=== PATIENT | male | born 1960 | race Caucasian/White ===

== ENCOUNTER 2024-06-13 11:21 | Inpatient (IN) | payer BC ==
[~2024-06-13] VITALS: Ht 182.9 cm; Wt 111.5 kg
[2024-06-13] VITALS (7 sets, daily range): BP systolic 201; BP diastolic 110; PULSE 86–94; RESP 16–18; TEMP 97.5; O2SAT 92–98
[2024-06-13 12:24] LABS: BASOPHILS # (AUTO) 0.1 X10'3 (0-0.2); BASOPHILS % (AUTO) 0.9 % (0-1); EOSINOPHILS # (AUTO) 0.2 X10'3 (0-0.9); EOSINOPHILS % (AUTO) 2.7 % (0-6); HEMATOCRIT 48.9 % (42.0-52.0); HEMOGLOBIN 16.6 g/dl (14.0-17.9); LYMPHOCYTES # (AUTO) 1.9 X10'3 (1.1-4.8); MEAN CORPUSCULAR HEMOGLOBIN 30.1 PG (27.0-31.0); MEAN CORPUSCULAR HGB CONC 33.9 g/dL (33.0-36.5); MEAN CORPUSCULAR VOLUME 88.6 FL (78-98); MEAN PLATELET VOLUME 7.5 FL (7.4-10.4); MONOCYTES # (AUTO) 0.5 X10'3 (0-0.9); MONOCYTES % (AUTO) 6.3 % (2-12); NEUTROPHILS % (AUTO) 65.1 % (42-75); PLATELET COUNT 286 X10'3 (140-440); RED BLOOD COUNT 5.52 X10'6 (4.70-6.10); RED CELL DISTRIBUTION WIDTH 15.5 % (11.5-14.5); WHITE BLOOD COUNT 7.6 X10'3 (4.5-11.0)
[2024-06-13 12:38] LABS: APTT 29 SECONDS (22-32); PROTHROMBIN TIME 10.2 SECONDS (9.0-12.0)
[2024-06-13 12:43] LABS: ALBUMIN 3.7 G/DL (3.4-5.0); ANION GAP 10 (8-16); BLOOD UREA NITROGEN 13 MG/DL (7-18); BUN/CREATININE RATIO 11.4 (10.0-20.0); CALCIUM 9.3 MG/DL (8.5-10.1); CHLORIDE 98 MMOL/L (99-107); CREATININE 1.14 MG/DL (0.60-1.10); GLUCOSE 111 MG/DL (70-104); SODIUM 136 MMOL/L (135-145); TOTAL CARBON DIOXIDE 28.4 MMOL/L (24-32); eCRCL 73 ML/MIN; eGFR 65 ML/MIN
[2024-06-13] MEDS: metoprolol tartrate 50mg tablet PO ONE (12:48)
[2024-06-13] MEDS: enalaprilat 1.25mg/ml 2ml vial IV ONE (12:48)
[2024-06-13] MEDS ORDERED: iohexol 350MG/ML 100ml bottle IV ONE (13:17)
[2024-06-13] MEDS ORDERED: potassium Cl 40MEQ/1/2NS 520ml 520 ML IV PRN (13:45)
[2024-06-13] MEDS ORDERED: magnesium sulf-water 4G/100mL 100 ML IV PRN (13:45)
[2024-06-13] MEDS ORDERED: acetaminophen 325mg tablet PO PRN ×2 (13:45)
[2024-06-13] MEDS ORDERED: morphine 2 MG/ML inj. syringe IV PRN (13:45)
[2024-06-13] MEDS ORDERED: potassium Cl 20 mEq SR tablet PO PRN ×2 (13:45)
[2024-06-13] MEDS ORDERED: magnesium sulf-water 2g/50mL 50 ML IV PRN (13:45)
[2024-06-13] MEDS ORDERED: magnesium Cl slow-release 64mg tablet PO PRN (13:45)
[2024-06-13] MEDS ORDERED: ondansetron/PF 4mg/2ml inj IV PRN (13:45)
[2024-06-13] MEDS ORDERED: mag hydrox/Alum hydrox/simeth 30ml oral suspension PO PRN (13:45)
[2024-06-13] MEDS ORDERED: magnesium hydroxide 30ml (MOM) UD suspension PO PRN (13:45)
[2024-06-13] MEDS: PERFLUTREN PROTEIN-A MICROSPHR (Optison) 0.22 MG/ML 3ML VIAL IV ONE (13:59)
[2024-06-13 14:03] LABS: BILIRUBIN,URINE NEGATIVE (Neg); CLARITY,URINE CLEAR (Clear); COLOR,URINE YELLOW (Yellow); GLUCOSE, URINE NEGATIVE (Neg); KETONES,URINE NEGATIVE (Neg); LEUKOCYTE ESTERASE ,URINE NEGATIVE (Neg); NITRITES, URINE NEGATIVE (Neg); OCCULT BLOOD,URINE NEGATIVE (Neg); PH,URINE 6.5 (4.8-8.0); PROTEIN,URINE 100 mg/dl (Neg); UROBILINOGEN,URINE 0.2 E.U/dL (0.2-1.0)
[2024-06-13 14:08] LABS: UA COLLECTION TYPE CLN CATCH MIDSTREAM
[2024-06-13 14:09] LABS: BACTERIA,URINE NONE SEEN /HPF (Neg); WBC,URINE NONE SEEN /HPF (0-4)
[2024-06-13 14:10] LABS: SQUAMOUS EPITHELIAL CELL,UR NONE SEEN /LPF (FEW)
[2024-06-13] MEDS ORDERED: albuterol 2.5 MG/3 ML nebule NEB PRN (15:00)
[2024-06-13] MEDS ORDERED: dextrose 50%-water 50ml dispensing syringe IV PRN (15:30)
[2024-06-13] MEDS ORDERED: haloperidol lactate 5mg/ml inj IM PRN (15:30)
[2024-06-13] MEDS: atorvastatin 20mg tablet PO SCH (15:31)
[2024-06-13] MEDS: aspirin 81mg tab.chew PO ONE (15:32)
[2024-06-13] MEDS: methylPREDNISolone sod succ 125mg/2ml vial IV ONE (15:59)
[2024-06-13] MEDS: nicotine 21mg patch - 24 hr TD SCH (15:59)
[2024-06-13] MEDS: CefTRIAXone/D5W-Rocephin 1gm 50 ML IV SCH (15:59)
[2024-06-13 16:27] LABS: HEMOGLOBIN A1C 6.3 % (4.5-6.2)
[2024-06-13] MEDS: ipratropium/albuterol 3ml nebule NEB SCH (16:31)
[2024-06-13] MEDS: azithromycin 250mg tablet PO ONE (17:00)
[2024-06-13] MEDS: clopidogrel 300mg tablet PO ONE (17:00)
[2024-06-13 17:24] LABS: URINE AMPHETAMINE SCREEN NEGATIVE (Neg); URINE BARBITUATE SCREEN NEGATIVE (Neg); URINE BENZODIAZEPINES SCREEN NEGATIVE (Neg); URINE CANNABINOID SCREEN POSITIVE (Neg); URINE COCAINE SCREEN NEGATIVE (Neg); URINE METHADONE SCREEN NEGATIVE (Neg); URINE OPIATE SCREEN NEGATIVE (Neg); URINE PHENCYCLIDINE SCREEN NEGATIVE (Neg)
[2024-06-13] MEDS: docusate sod 100mg capsule PO SCH (19:04)
[2024-06-13] MEDS: K and/or MAG REPLACEMENT MC SCH (19:04)
[2024-06-13] MEDS: thiamine 100mg/ml 2ml inj. IV SCH (20:10)
[2024-06-13] MEDS: Cipro HC otic suspension 10ML bottle EACH EAR SCH (20:10)
[2024-06-13] MEDS: methylPREDNISolone sod succ/PF 40mg inj. IV SCH (20:10)
[2024-06-13] MEDS ORDERED: NO HOME MEDS (20:34)
[2024-06-13] MEDS: LORazepam 1 MG tablet PO PRN (22:01)
[2024-06-14] VITALS (16 sets, daily range): BP systolic 153–194; BP diastolic 87–107; PULSE 88–119; RESP 16–20; TEMP 97.3–98.6; O2SAT 91–95
[2024-06-14] MEDS: haloperidol 5mg tablet PO PRN (00:15)
[2024-06-14 06:13] LABS: BASOPHILS % (AUTO) 0.2 % (0-1); EOSINOPHILS % (AUTO) 0 % (0-6); HEMATOCRIT 49.4 % (42.0-52.0); HEMOGLOBIN 16.5 g/dl (14.0-17.9); LYMPHOCYTES # (AUTO) 0.8 X10'3 (1.1-4.8); LYMPHOCYTES % (AUTO) 12.1 % (21-51); MEAN CORPUSCULAR HEMOGLOBIN 29.5 PG (27.0-31.0); MEAN CORPUSCULAR HGB CONC 33.3 g/dL (33.0-36.5); MEAN CORPUSCULAR VOLUME 88.6 FL (78-98); MEAN PLATELET VOLUME 8.1 FL (7.4-10.4); MONOCYTES # (AUTO) 0.1 X10'3 (0-0.9); NEUTROPHILS # (AUTO) 6.1 X10'3 (1.8-7.7); NEUTROPHILS % (AUTO) 86.7 % (42-75); PLATELET COUNT 303 X10'3 (140-440); RED BLOOD COUNT 5.58 X10'6 (4.70-6.10); RED CELL DISTRIBUTION WIDTH 15.9 % (11.5-14.5)
[2024-06-14 06:26] LABS: PROTHROMBIN TIME 10.6 SECONDS (9.0-12.0)
[2024-06-14 06:49] LABS: ALANINE AMINOTRANSFERASE 37 U/L (12-78); ALBUMIN 3.4 G/DL (3.4-5.0); ALKALINE PHOSPHATASE 106 IU/L (46-116); ANION GAP 7 (8-16); ASPARTATE AMINO TRANSFERASE 15 U/L (10-37); BILIRUBIN,TOTAL 0.3 MG/DL (0.1-1.0); BLOOD UREA NITROGEN 16 MG/DL (7-18); BUN/CREATININE RATIO 15.1 (10.0-20.0); CHLORIDE 101 MMOL/L (99-107); CHOL/HDL RATIO 4.8 (0.00-4.99); CHOLESTEROL 258 MG/DL (0-200); CREATININE 1.06 MG/DL (0.60-1.10); GLUCOSE 191 MG/DL (70-104); HDL CHOLESTEROL 54 MG/DL (35-60); LIPASE 26 U/L (16-77); MAGNESIUM 2.2 MG/DL (1.5-2.4); PHOSPHORUS 4.2 MG/DL (2.3-4.5); SODIUM 137 MMOL/L (135-145); TOTAL CARBON DIOXIDE 28.8 MMOL/L (24-32); TRIGLYCERIDES 139 MG/DL (20-135); eCRCL 78 ML/MIN; eGFR 71 ML/MIN
[2024-06-14 07:10] LABS: ALBUMIN/GLOBULIN RATIO 0.7 (1.1-1.5); AMYLASE 36 U/L (25-115); LDL CHOLESTEROL 175 MG/DL (50-100); TOTAL PROTEIN 8.2 G/DL (6.4-8.2)
[2024-06-14] MEDS: folic acid 1mg/0.2ml inj IV SCH (09:01)
[2024-06-14] MEDS: multivitamins, therapeutics tablet PO SCH (09:02)
[2024-06-14] MEDS: aspirin 81mg tab.chew PO SCH (09:02)
[2024-06-14] MEDS: clopidogrel 75mg tablet PO SCH (09:02)
[2024-06-14] MEDS: amLODIPine 5mg tablet PO ONE (14:36)
[2024-06-14] MEDS: CefTRIAXone/D5W-Rocephin 1gm 50 ML IV SCH (14:37)
[2024-06-14] MEDS: hydrALAZINE 20mg/ml inj. IV PRN (17:37)
[2024-06-14] MEDS: losartan 50mg tablet PO ONE (19:45)
[2024-06-14] MEDS: LORazepam 2 mg/ml vial IV PRN (21:58)
[2024-06-15] VITALS (16 sets, daily range): BP systolic 124–190; BP diastolic 76–111; PULSE 67–113; RESP 16–20; TEMP 97.5–98.7; O2SAT 93–96
[2024-06-15 06:57] LABS: PROTHROMBIN TIME 10.6 SECONDS (9.0-12.0)
[2024-06-15 07:01] LABS: BASOPHILS % (AUTO) 0.1 % (0-1); EOSINOPHILS % (AUTO) 0 % (0-6); HEMATOCRIT 47.8 % (42.0-52.0); HEMOGLOBIN 15.8 g/dl (14.0-17.9); LYMPHOCYTES # (AUTO) 1.1 X10'3 (1.1-4.8); LYMPHOCYTES % (AUTO) 6.3 % (21-51); MEAN CORPUSCULAR HEMOGLOBIN 29.3 PG (27.0-31.0); MEAN CORPUSCULAR HGB CONC 33.1 g/dL (33.0-36.5); MEAN CORPUSCULAR VOLUME 88.5 FL (78-98); MEAN PLATELET VOLUME 8.3 FL (7.4-10.4); MONOCYTES # (AUTO) 0.3 X10'3 (0-0.9); MONOCYTES % (AUTO) 1.9 % (2-12); NEUTROPHILS # (AUTO) 15.8 X10'3 (1.8-7.7); NEUTROPHILS % (AUTO) 91.7 % (42-75); PLATELET COUNT 309 X10'3 (140-440); WHITE BLOOD COUNT 17.2 X10'3 (4.5-11.0)
[2024-06-15 07:09] LABS: ALANINE AMINOTRANSFERASE 33 U/L (12-78); ALBUMIN 3.4 G/DL (3.4-5.0); ALBUMIN/GLOBULIN RATIO 0.7 (1.1-1.5); ALKALINE PHOSPHATASE 98 IU/L (46-116); AMYLASE 39 U/L (25-115); ANION GAP 11 (8-16); ASPARTATE AMINO TRANSFERASE 19 U/L (10-37); BILIRUBIN,TOTAL 0.4 MG/DL (0.1-1.0); BLOOD UREA NITROGEN 23 MG/DL (7-18); BUN/CREATININE RATIO 20.7 (10.0-20.0); CALCIUM 8.9 MG/DL (8.5-10.1); CHLORIDE 100 MMOL/L (99-107); CREATININE 1.11 MG/DL (0.60-1.10); GLUCOSE 179 MG/DL (70-104); LIPASE 31 U/L (16-77); MAGNESIUM 2.3 MG/DL (1.5-2.4); PHOSPHORUS 4.5 MG/DL (2.3-4.5); SODIUM 135 MMOL/L (135-145); TOTAL CARBON DIOXIDE 24.5 MMOL/L (24-32); eCRCL 75 ML/MIN; eGFR 67 ML/MIN
[2024-06-15 09:20] LABS: HBSAG SCREEN Negative (Negative); HEP B CORE AB, IGM Negative (Negative); HEP B CORE AB, TOT Negative (Negative); HEP B SURF AB Non Reactive (.)
[2024-06-15] MEDS: amLODIPine 5mg tablet PO SCH (09:57)
[2024-06-15] MEDS: azithromycin 250mg tablet PO SCH (10:04)
[2024-06-15] MEDS: methylPREDNISolone sod succ/PF 40mg inj. IV SCH (20:14)
[2024-06-15] MEDS: losartan 50mg tablet PO SCH (20:21)
[2024-06-15] MEDS: HYDROchlorothiazide 25mg tablet PO SCH (20:21)
[2024-06-16] VITALS (8 sets, daily range): BP systolic 140–171; BP diastolic 81–101; PULSE 65–115; RESP 18; TEMP 97.9–98; O2SAT 93–95
[2024-06-16 05:46] LABS: BASOPHILS % (AUTO) 0.2 % (0-1); EOSINOPHILS % (AUTO) 0 % (0-6); HEMATOCRIT 48.4 % (42.0-52.0); LYMPHOCYTES # (AUTO) 1.1 X10'3 (1.1-4.8); LYMPHOCYTES % (AUTO) 6.7 % (21-51); MEAN CORPUSCULAR HEMOGLOBIN 29.5 PG (27.0-31.0); MEAN CORPUSCULAR HGB CONC 33.1 g/dL (33.0-36.5); MEAN PLATELET VOLUME 8.5 FL (7.4-10.4); MONOCYTES # (AUTO) 0.3 X10'3 (0-0.9); MONOCYTES % (AUTO) 2.1 % (2-12); NEUTROPHILS # (AUTO) 14.5 X10'3 (1.8-7.7); PLATELET COUNT 320 X10'3 (140-440); RED BLOOD COUNT 5.44 X10'6 (4.70-6.10); RED CELL DISTRIBUTION WIDTH 16.4 % (11.5-14.5)
[2024-06-16 05:56] LABS: PROTHROMBIN TIME 10.7 SECONDS (9.0-12.0)
[2024-06-16 06:16] LABS: ALANINE AMINOTRANSFERASE 39 U/L (12-78); ALBUMIN 3.5 G/DL (3.4-5.0); ALBUMIN/GLOBULIN RATIO 0.8 (1.1-1.5); ALKALINE PHOSPHATASE 100 IU/L (46-116); AMYLASE 34 U/L (25-115); ANION GAP 8 (8-16); ASPARTATE AMINO TRANSFERASE 16 U/L (10-37); BILIRUBIN,TOTAL 0.3 MG/DL (0.1-1.0); BLOOD UREA NITROGEN 31 MG/DL (7-18); CALCIUM 8.7 MG/DL (8.5-10.1); CHLORIDE 103 MMOL/L (99-107); CREATININE 1.15 MG/DL (0.60-1.10); GLUCOSE 183 MG/DL (70-104); LIPASE 29 U/L (16-77); MAGNESIUM 2.6 MG/DL (1.5-2.4); PHOSPHORUS 5.1 MG/DL (2.3-4.5); POTASSIUM 4.3 MMOL/L (3.5-5.1); SODIUM 141 MMOL/L (135-145); TOTAL CARBON DIOXIDE 30.3 MMOL/L (24-32); TOTAL PROTEIN 8.1 G/DL (6.4-8.2); eCRCL 72 ML/MIN; eGFR 64 ML/MIN
[2024-06-16] MEDS ORDERED: AZIT500T9 PO (07:53)
[2024-06-16] MEDS ORDERED: CIPR10DR EACH EAR (07:53)
[2024-06-16] MEDS ORDERED: ATOR-2 PO (08:06)
[2024-06-16] MEDS ORDERED: HYDR25TA4 PO (08:06)
[2024-06-16] MEDS ORDERED: FOLI1TAB27 PO (08:06)
[2024-06-16] MEDS ORDERED: ALBU8HFA PO (08:06)
[2024-06-16] MEDS ORDERED: THIA50TA10 PO (08:06)
[2024-06-16] MEDS ORDERED: BUDE10.2 INH (08:06)
[2024-06-16] MEDS ORDERED: CEFD300C3 PO (08:06)
[2024-06-16] MEDS ORDERED: AMLO10TA2 PO (08:06)
[2024-06-16] MEDS ORDERED: LACT1CAP26 PO (08:06)
[2024-06-16] MEDS ORDERED: CLOP75TA34 PO (08:06)
[2024-06-16] MEDS ORDERED: ASPI-107 PO (08:06)
[2024-06-16] MEDS ORDERED: NICO-687 TD (08:06)
[2024-06-16] MEDS ORDERED: LOSA100T58 PO (08:06)
[2024-06-16] MEDS ORDERED: METO-395 PO (08:21)
[2024-06-17] MEDS ORDERED: thiamine 100mg tablet PO SCH (08:00)
[2024-06-18] MEDS ORDERED: folic acid 1mg tablet PO SCH (08:00)
== END 2024-06-16 11:20 | disposition home or self-care (01) | DRG 304 ==
LOC: ER 11:22 → ED HOLD 13:37 → ORTHO 4S 21:25
PROVIDERS: ADMIT Family Medicine; ATTEND Family Medicine
PROC: B3251ZZ Computerized Tomography (CT Scan) of Bilateral Common Carotid Arteries using Low Osmolar Contrast (ICD-10-PCS; principal; 2024-06-13)
PROC: B32G1ZZ Computerized Tomography (CT Scan) of Bilateral Vertebral Arteries using Low Osmolar Contrast (ICD-10-PCS; 2024-06-13)
PROC: B32R1ZZ Computerized Tomography (CT Scan) of Intracranial Arteries using Low Osmolar Contrast (ICD-10-PCS; 2024-06-13)
PROC: B3281ZZ Computerized Tomography (CT Scan) of Bilateral Internal Carotid Arteries using Low Osmolar Contrast (ICD-10-PCS; 2024-06-13)
DX: I16.1 Hypertensive emergency (principal); N17.0 Acute kidney failure with tubular necrosis; G45.9 Transient cerebral ischemic attack, unspecified; J44.1 Chronic obstructive pulmonary disease with (acute) exacerbation; J44.0 Chronic obstructive pulmonary disease with (acute) lower respiratory infection; I10 Essential (primary) hypertension; F17.210 Nicotine dependence, cigarettes, uncomplicated; J20.9 Acute bronchitis, unspecified
CPT/HCPCS: 36415; 70450; 70496; 70498; 71045; 80048; 80053; 80061; 80305; 81001; 82150; 82570; 82948; 83036; 83690; 83735; 83930; 83935; 84100; 84156; 84295; 84300; 84484; 85025; 85610; 85730; 86704; 86705; 86706; 87081; 87340; 92508; 92616; 93005; 93306; 94640; 94760; 99285; G0378; J0360; J0696; J2060; J2919; J3411; J3490; Q9967